=== PATIENT | male | born 1965 | race Caucasian/White ===

== ENCOUNTER 2016-07-02 11:13 | Emergency (ER) | payer SELFPAY ==
[~2016-07-02] VITALS: Ht 177.8 cm; Wt 76.0 kg
[~2016-07-02 11:13] MED LIST: LORA0.5T PO; PROP40TA3 PO
[2016-07-02 11:14] VITALS: BP 131/71; PULSE 75; RESP 16; TEMP 98.7; O2SAT 95
--- NOTE | 2016-07-02 11:25 | PD ---
Physical Exam Date Seen by Provider: July 02, 2016 Time Seen by Provider: 11:24 Narrative 51 year old male presents to the emergency department fore valuation of right sided neck pressure that radiates up to the face. He states it swells up. No fevers. He states it hurts to swallow. No chronic medical problems. Vital signs reviewed. Patient awaiting bed placement. Data Data Last Documented VS Vital Signs Date Time Temp Pulse Resp B/P Pulse Ox O2 Delivery O2 Flow Rate FiO2 07/02/16 11:14 98.7 75 16 131/71 95 MDM Supervised Visit with VAL: Kandis Villarreal July 02, 2016 11:25
[2016-07-02] MEDS ORDERED: ORPH100T99 PO (12:32)
--- NOTE | 2016-07-02 12:35 | PD ---
HPI Chief Complaint: Back/ Neck Pain or Injury Time Seen by Provider: 11:36 Travel History International Travel<30 days: No Contact w/Intl Traveler<30days: No Traveled to known affect area: No History of Present Illness HPI This patient complains of pain in the right side of his neck. He's had it about one week. It radiates up toward his jawline. No injury. No fever. Severity is mild to moderate. No alleviating factors PFSH Past Medical History Cardiovascular Problems: Yes (hx htn) Diminished Hearing: No Hypertension: Yes (HX) Past Surgical History Appendectomy: Yes Tonsillectomy: Yes Other Surgery: Yes (LEFT WRIST SX) Social History Alcohol Use: Yes (BEER DAILY) Tobacco Use: No Substance Use: No Allergies-Medications (Allergen,Severity, Reaction): Coded Allergies: No Known Allergies (Unverified , 07/02/16) Reported Meds & Prescriptions Reported Meds & Active Scripts Active Orphenadrine CR (Orphenadrine Citrate) 100 Mg Tab 100 Mg PO Q12HR Review of Systems General / Constitutional: No: Fever HENT: No: Headaches Cardiovascular: No: Chest Pain or Discomfort Respiratory: No: Cough Physical Exam Narrative SKIN: Focused skin assessment reveals no rash or ulcers. Skin is warm and dry. Palpation shows no induration or nodules. NEUROLOGICAL: Awake and alert. Pupils are equal round and reactive. Motor and sensory grossly within normal limits. Five out of 5 muscle strength in all muscle groups. Normal speech. NECK: Symmetrical appearance, midline trachea. No mass or crepitus. Thyroid without enlargement, tenderness, or mass. Throat clear Data Data Last Documented VS Vital Signs Date Time Temp Pulse Resp B/P Pulse Ox O2 Delivery O2 Flow Rate FiO2 07/02/16 11:14 98.7 75 16 131/71 95 MDM Medical Decision Making Medical Screen Exam Complete: Yes Emergency Medical Condition: Yes Medical Record Reviewed: Yes Differential Diagnosis Cervical strain, lymphadenopathy, abscess Narrative Course I have reviewed the patient's electronic medical record. Etiology of this presentation is unclear. It is very atypical. There are no objective findings whatsoever and he has no injury Nothing here to suggest infective process He is neurologically intact I think most likely he has sternocleidomastoid strain or pain on the right side He would like to try something so written one week of Norflex to use as needed Warned him about potential sedation and recommend primary care follow-up Diagnosis Primary Impression: Neck pain on right side Additional Instructions: The patient was advised to follow up with their physician and return if they worsen. The patient was warned about potential sedation for the medications they will receive on prescription. Med/Other Pt SpecificInfo: Prescription(s) given Scripts Orphenadrine ER 12 HR (Orphenadrine CR)100 Mg Gll340 Mg PO Q12HR #14 TAB Ref 0 Prov:Mayur Monroy MD 07/02/16 Disposition: 01 DISCHARGE HOME Condition: Stable Mayur Monroy MD July 02, 2016 12:35
== END 2016-07-02 12:47 | disposition home or self-care (01) ==
LOC: NEPD 11:13
DX: M54.2 Cervicalgia (principal)
CPT/HCPCS: 99283